=== PATIENT | female | born 1955 | race Caucasian/White ===

== ENCOUNTER 2021-03-23 11:24 | Emergency (ER) | payer OTHER ==
[2021-03-23] MEDS ORDERED: fentaNYL (PF) 50 MCG/ML 2 ML AMP IV STA (11:34)
--- NOTE | 2021-03-23 11:47 | ED ---
Fall HPI - General Chief Complaint: Fall Stated Complaint: Fall Time Seen by Provider: 03/23/21 11:24 Source: patient, EMS, RN notes reviewed Mode of arrival: EMS - History of Present Illness Initial Comments: This is a 65-year-old female who states she was walking down steps at her house last night when she missed last step and fell onto her right side she complained of right hip and upper thigh pain also she did fall and hit her right arm but denies any head neck or back pain denies any pain at this time to upper extremities she had he carried by family members as a house last evening this morning she had a be assisted to a wheelchair. She was brought in by EMS. She was given 100 g of fentanyl intranasally prior to moving out of the house. She denies any other complaints at this time MD Complaint: fall - Related Data Allergies Allergy/AdvReac Type Severity Reaction Status Date / Time codeine Allergy Abdominal Verified 03/23/21 11:38 Pain Review of Systems ROS Statement: Those systems with pertinent positive or pertinent negative responses have been documented in the HPI. ROS Other: All systems not noted in ROS Statement are negative. Past Medical History Past Medical History: COPD, Hypertension History of Any Multi-Drug Resistant Organisms: None Reported Past Surgical History: Cholecystectomy Additional Past Surgical History / Comment(s): jaw surgery, Past Psychological History: No Psychological Hx Reported Smoking Status: Current every day smoker Past Alcohol Use History: Occasional Past Drug Use History: Marijuana General Exam - General Exam Comments Initial Comments: This is a well-developed well-nourished awake alert oriented 4 female with a Duong Coma Scale of 15 Limitations: physical limitation General appearance: alert, anxious Head exam: Present: atraumatic, normocephalic, normal inspection Eye exam: Present: normal appearance, PERRL, EOMI. Absent: scleral icterus, conjunctival injection, periorbital swelling ENT exam: Present: normal exam, mucous membranes moist Neck exam: Present: normal inspection. Absent: tenderness, meningismus, lymphadenopathy Respiratory exam: Present: normal lung sounds bilaterally. Absent: respiratory distress, wheezes, rales, rhonchi, stridor Cardiovascular Exam: Present: regular rate, normal rhythm, normal heart sounds. Absent: systolic murmur, diastolic murmur, rubs, gallop, clicks GI/Abdominal exam: Present: soft, normal bowel sounds. Absent: distended, tenderness, guarding, rebound, rigid Extremities exam: Present: tenderness, normal capillary refill, other (Tennis palpation of the right hip with evidence of lateral rotation and some shortening noted. No other findings other than some light ecchymosis to the right posterior arm with no step-off no crepitation for range of motion.). Absent: full ROM, pedal edema, joint swelling, calf tenderness Back exam: Present: normal inspection Neurological exam: Present: alert, oriented X3, CN II-XII intact Psychiatric exam: Present: normal affect, normal mood Skin exam: Present: warm, dry, intact, normal color. Absent: rash Course Vital Signs 03/23/21 03/23/21 11:25 12:50 Temperature 97.6 F Pulse Rate 67 82 Respiratory 20 20 Rate Blood Pressure 161/109 141/89 O2 Sat by Pulse 97 95 Oximetry Medical Decision Making - Medical Decision Making I did discuss the findings with patient family members. 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 Did discuss case with Dr. Earl who agrees to accept the patient transfer ER to ER. - Radiology Data Radiology results: report reviewed, image reviewed ((Reviewed evidence of a right hip fracture. VID) Disposition Clinical Impression: Fall, Closed right hip fracture Disposition: OTHER INSTITUTION NOT DEFINED Condition: Stable Is patient prescribed a controlled substance at d/c from ED?: No Referrals: Nonstaff,Physician [Primary Care Provider] - 1-2 days - Out of Hospital Transfer - Req. Specs Out of Hospital Transfer - Requested Specifics: Other Emergency Center
[2021-03-23] MEDS ORDERED: fentaNYL (PF) 50 MCG/ML 2 ML AMP IVP STA ×2 (12:51→14:34)
--- NOTE | 2021-03-23 12:54 | XR ---
EXAMINATION TYPE: XR Hip RT and AP Pelvis DATE OF EXAM: 03/23/2021 COMPARISON: NONE HISTORY: 65 years Female. STUDY INDICATION GIVEN: Fall TECHNIQUE: AP and lateral right hip radiographs AP pelvic radiograph FINDINGS AND IMPRESSION: There is an acute superiorly displaced fracture of the right femoral intertrochanteric region. Right femoral head remains in the acetabulum. The left hip is also normally aligned. 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 Degenerative changes are seen in the lower lumbar spine. The sacroiliac joints and pubic symphysis ma intained and alignment. Large amount of stool noted in the abdomen and pelvis.
--- NOTE | 2021-03-23 12:55 | XR ---
EXAMINATION TYPE: XR chest 1V DATE OF EXAM: 03/23/2021 COMPARISON: None HISTORY: 65 years Female. STUDY INDICATION GIVEN: 4 TECHNIQUE: AP portable chest radiograph FINDINGS AND IMPRESSION: No focal airspace disease, pneumothorax or pleural effusion. Cardiomediastinal silhouette within normal limit. No acute osseous abnormalities seen.
[2021-03-23 15:02] VITALS: BP 147/75; PULSE 75; RESP 18; TEMP 98.1
== END 2021-03-23 14:55 | disposition other institution (70) ==
LOC: EC 11:24
DX: S72.001A Fracture of unspecified part of neck of right femur, initial encounter for closed fracture (principal); S40.021A Contusion of right upper arm, initial encounter; I10 Essential (primary) hypertension; J44.9 Chronic obstructive pulmonary disease, unspecified; F17.200 Nicotine dependence, unspecified, uncomplicated; F12.90 Cannabis use, unspecified, uncomplicated; W10.9XXA Fall (on) (from) unspecified stairs and steps, initial encounter; Y93.01 Activity, walking, marching and hiking
CPT/HCPCS: 73502; 71045; 96374; 96376 ×2; 99285; J3010